=== PATIENT | female | born 1985 | race Two or more races ===

== ENCOUNTER 2025-02-24 16:59 | Emergency (ER) | payer MEDICAID, OTHER ==
[~2025-02-24] VITALS: Ht 157.5 cm; Wt 74.6 kg
--- NOTE | 2025-02-24 18:51 | ED.PDOC ---
History of Present Illness HPI Comments 39 year-old female who presents to the ED with a chief complaint of headache, cough, and bilateral ear pressure for X4 days. Patient has no further complaints or modifying factors at this time. Patient denies any symptoms of fever, chills, SOB, or chest pain. Chief Complaint: Flu like Time Seen by MD: 18:27 Reviewed Notes: Medications, Allergies Allergies: Coded Allergies: NO KNOWN ALLERGIES (Unverified , 02/24/25) Home Meds Active Scripts Albuterol Sulfate (VENTOLIN MDI) 90 Mcg Ih, 180 MCG IN Q6HP PRN for 14 Days, #1 INHALER Prov:HERNANDO NICHOLS [facility] 02/24/25 Methylprednisolone (Medrol Dosepak) 4 Mg Russ, 4 MG PO UD for 6 Days, #21 TAB UAD Prov:HERNANDO NICHOLS [facility] 02/24/25 Azithromycin (Azithromycin) 250 Mg Tab, 250 MG PO DAILY MDD 500 for 5 Days, #6 TAB 0 Refills 2 TABLETS ORALLY ON DAY ONE, THEN 1 TABLET ORALLY DAILY FOR 4 DAYS Prov:HERNANDO NICHOLS [facility] 02/24/25 Information Source: Patient Mode of Arrival: Ambulatory Severity: Moderate Timing: Days Duration: Since onset Past Medical History PAST MEDICAL HISTORY: DM Surgical History: Denies all surgeries Family History Family History: Unknown Social History Smoker: Non-Smoker Alcohol: Denies ETOH Use Drugs: Denies Drug Use Lives In: Home Constitutional: denies: chills, diaphoresis, fatigue, fever, malaise, sweats, weakness, others EENTM: reports: others (bilat ear pressure ); denies: blurred vision, double vision, ear bleeding, ear discharge, ear drainage, ear pain, ear ringing, eye pain, eye redness, hearing loss, mouth pain, mouth swelling, nasal discharge, nose bleeding, nose congestion, nose pain, photophobia, tearing, throat pain, throat swelling, voice changes Respiratory: reports: cough; denies: hemoptysis, orthopnea, SOB at rest, shortness of breath, SOB with excertion, stridor, wheezing, others Cardiovascular: denies: chest pain, dizzy spells, diaphoresis, Dyspnea on exertion, edema, irregular heart beat, left arm pain, lightheadedness, palpitations, PND, syncope, others Gastrointestinal: denies: abdomen distended, abdominal pain, blood streaked bowels, constipated, diarrhea, dysphagia, difficulty swallowing, hematemesis, melena, nausea, poor appetite, poor fluid intake, rectal bleeding, rectal pain, vomiting, others Genitourinary: denies: abnormal vagina bleeding, burning, dyspareunia, dysuria, flank pain, frequency, hematuria, incontinence, pain, , vagina discharge, urgency, others Neurological: reports: headache; denies: dizziness, fainting, left sided numbness, left sided weakness, numbness, paresthesia, pre-existing deficit, right sided numbness, right sided weakness, seizure, speech problems, tingling, tremors, weakness, others Musculoskeletal: denies: back pain, gout, joint pain, joint swelling, muscle pain, muscle stiffness, neck pain, others Integumetry: denies: bruises, change in color, change in hair/nails, dryness, laceration, lesions, lumps, rash, wounds, others Allergic/Immunocompromised: denies: Difficulty Healing, Frequent Infections, Hives, Itching, others Hematologic/Lymphatic: denies: anemia, blood clots, easy bleeding, easy bruising, swollen glands, others Endocrine: denies: excessive hunger, excessive sweating, excessive thirst, excessive urination, flushing, intolerance to cold, intolerance to heat, unexplained weight gain, unexplained weight loss, others Psychiatric: denies: anxiety, bipolar disorder, depression, hopeless, panic disorder, schizophrenia, sleepless, suicidal, others All Other Systems: Reviewed and Negative Physical Exam General Appearance: No Apparent Distress, Normal HEENT: Normal ENT Inspection, Pharynx Normal, TMs Normal Neck: Full Range of Motion, Non-Tender Respiratory: Chest Non-Tender, No Accessory Muscle Use, No Respiratory Distress, Wheezing Cardiovascular: No Edema, No JVD, No Murmur, No Gallop, Normal Peripheral Pulses, Regular Rate/Rhythm Breast Exam: Deferred Gastrointestinal: No Organomegaly, Non Tender, No Pulsatile Mass, Normal Bowel Sounds, Soft Genitalia: Deferred Pelvic: Deferred Rectal: Deferred Extremities: Normal capillary refill, Normal range of motion, No pedal edema Musculoskeletal : Apperance: Normal Neurologic: Alert, No Motor Deficits, Normal Affect, Normal Mood, No Sensory Deficits Cerebellar Function: Normal Reflexes: NOT DONE Skin: Dry, Normal Color, Warm Lymphatic: No Adenopathy Was a procedure done? Was a procedure done?: No Differential Dx Considerations may include: viral syndrome, common flu, pneumonia X-Ray, Labs, Meds, VS Vital Signs Date Time Temp Pulse Resp B/P (MAP) Pulse Ox O2 Delivery O2 Flow Rate FiO2 02/24/25 19:29 19 02/24/25 19:29 98.6 112 19 128/80 (96) 97 98.6 02/24/25 18:54 18 96 Room Air* 0 21 02/24/25 17:00 97.3 110 18 168/110 98 97.3 X-Ray, Labs, Meds, VS Comment Patient received duo neb x1 lung sounds clear and equal bilateral reports improvement requesting discharge at this time. Likely bronchitis. Script trial of albuterol, steroid and antibiotic advised take medication as prescribed side effects discussed. Follow up with PCP in 2-3 days as necessary ER return precautions given patient indicates understanding and agrees with discharge plan of care. Time of 1ST Reevaluation: 19:05 Reevaluation 1ST: Unchanged Time of 2ND Reevaluation: 19:10 Reevaluation 2ND: Improved Patient Education/Counseling: Diagnosis, Treatment Family Education/Counseling: No Family Present SEPSIS Sepsis Screen Date sepsis recognized/suspect: Feb 24, 2025 Time Sepsis recognized/suspect: 1699 Recent Procedure: No On Antibiotic Therapy: No Respiratory Rate >20: No Heart Rate >90: Yes Temp<36 C (96.8 F) or >38.3 C: No SBP <90 or MAP <65 mmHG: No New Acute Mental Status Change: No Is the patient on CPAP, BIPAP,: No Physician Orders Med Neb Initial Treatment (02/24/25 18:31) Vital Signs Date Time Temp Pulse Resp B/P (MAP) Pulse Ox O2 Delivery O2 Flow Rate FiO2 02/24/25 19:29 19 02/24/25 19:29 98.6 112 19 128/80 (96) 97 98.6 02/24/25 18:54 18 96 Room Air* 0 21 02/24/25 17:00 97.3 110 18 168/110 98 97.3 Departure 1 Departure Time of Disposition: 19:12 Impression: Primary Impression: Bronchitis Disposition: HOME / SELF CARE / HOMELESS Condition: Stable e-Prescriptions Albuterol Sulfate (VENTOLIN MDI) 90 Mcg Ih 180 MCG IN Q6HP PRN for 14 Days, #1 INHALER Prov: HERNANDO NICHOLS [facility] 02/24/25 Methylprednisolone (Medrol Dosepak) 4 Mg Russ 4 MG PO UD for 6 Days, #21 TAB UAD Prov: HERNANDO NICHOLS [facility] 02/24/25 Azithromycin (Azithromycin) 250 Mg Tab 250 MG PO DAILY MDD 500 for 5 Days, #6 TAB 0 Refills 2 TABLETS ORALLY ON DAY ONE, THEN 1 TABLET ORALLY DAILY FOR 4 DAYS Prov: HERNANDO NICHOLS [facility] 02/24/25 Discharged With: Significant Other Critical Care Note Critical Care Time?: No Stability Stability form required: No Heart Score Heart Score: Heart Score Response (Comments) Value History N/A 0 EKG N/A 0 Age <45 0 Risk Factors No known risk factors 0 Troponin N/A 0 Total 0 I personally scribed for ER ([email or web address]) on 02/24/25 at 18:51. Electronically roldan bmitted by Ebony Cordero ([facility]). ER Feb 24, 2025 18:51 HERNANDO NICHOLS [facility] Feb 24, 2025 19:14
[2025-02-24] MEDS: IPRATROPIUM BROM 0.5 MG/2.5ML INH SOL NEB ONE (18:53)
[2025-02-24] MEDS: ALBUTEROL SULF 2.5 MG/0.5ML(0.5%) NEB SOLN NEB ONE (18:53)
[2025-02-24] MEDS ORDERED: AZIT-43 PO (19:14)
[2025-02-24] MEDS ORDERED: METH4PAK PO (19:14)
[2025-02-24] MEDS ORDERED: ALBUAER3 IN (19:14)
[2025-02-24] MEDS: predniSONE 20 MG TAB PO ONE (19:27)
[2025-02-24] MEDS: AZITHROMYCIN 250 MG TAB PO ONE (19:28)
[2025-02-24 19:29] VITALS: BP 128/80; PULSE 112; RESP 19; TEMP 98.6; O2SAT 97
[2025-02-24] MEDS: PROMETHAZINE-DM 5 ML ORAL SYRUP PO ONE (19:29)
== END 2025-02-24 19:44 | disposition home or self-care (01) ==
LOC: ER 16:59
DX: J40 Bronchitis, not specified as acute or chronic (principal); E11.9 Type 2 diabetes mellitus without complications; Z79.899 Other long term (current) drug therapy
CPT/HCPCS: 94640; 99284; J7512